=== PATIENT | female | born 1990 | race Caucasian/White ===

== ENCOUNTER 2020-10-27 13:20 | Inpatient (IN) | payer MEDICARE, MEDICAID ==
[~2020-10-27] VITALS: Ht 160 cm; Wt 70.4 kg
[2020-10-27] MEDS ORDERED: FUROSEMIDE 40MG/4ML VIAL IV ONE (13:45)
[2020-10-27 14:04] LABS: BG BASE EXCESS -1.8 mmol/L (-2.0-2.0); BG CARBOXYHEMOGLOBIN 0.8 % (0.5-1.5); BG DEOXYHEMOGLOBIN 31.4 % (0.0-5.0); BG FRACTION INSPIRED OXYGEN 99.9; BG HCO3 ACT 24.2 mmol/L (22.0-26.0); BG METHEMOGLOBIN 0.1 % (0.0-1.5); BG OXYGEN SATURATION 68.3 % (92.0-98.5); BG OXYHEMOGLOBIN 67.7 % (94.0-97.0); BG PCO2 46.4 mmHg (35.0-45.0); BG PH 7.335 (7.350-7.450); BG PO2 41.5 mmHg (75.0-100.0); BG SAMPLE SITE RIGHT RADIAL; BG TOTAL HEMOGLOBIN 10.3 g/dL (12.0-18.0); BG VENT MODE MASK - NRB
[2020-10-27 14:04] LABS: HEMATOCRIT. 30.7 % (36.0-48.0); HEMOGLOBIN. 9.7 g/dL (12.0-16.0); MEAN CORPUSCULAR HEMOGLOBIN 26.6 pg (28.0-32.0); MEAN CORPUSCULAR VOLUME 84.4 fL (81.0-99.0); MEAN PLATELET VOLUME 8.9 fl (7.4-10.4); PLATELET 216 x1000/uL (130-400); RED BLOOD CELL COUNT 3.64 mill/uL (4.2-5.4); RED CELL DISTRIBUTION WIDTH 17.6 % (11.6-14.6)
[2020-10-27 14:10] LABS: CHLORIDE 93 mEq/L (98-107)
[2020-10-27 14:28] LABS: PLATELET ESTIMATE NORMAL
[2020-10-27] MEDS ORDERED: CEFTRIAXONE 1 G PREMIX 50 ML IV ONE (18:30)
[2020-10-27] MEDS ORDERED: AZITHROMYCIN 500 MG in DEXT 5% WATER 250 ML IV SCH (18:30)
[2020-10-27] MEDS ORDERED: NITROGLYCERIN 0.4MG TABLET SL SL PRN (19:15)
[2020-10-27] MEDS ORDERED: ACETAMINOPHEN 325MG TABLET PO PRN ×2 (19:15)
[2020-10-27] MEDS ORDERED: MAGNESIUM/ALUMINUM HYDROXIDE/SIMETHICONE 30ML UDC PO PRN (19:15)
[2020-10-27] MEDS ORDERED: ONDANSETRON HCL 4MG/2ML INJ IV PRN (19:15)
[2020-10-27] MEDS ORDERED: DIPHENHYDRAMINE 50MG/ML VIAL IV PRN (19:15)
[2020-10-27] MEDS ORDERED: DEXTROSE 50% WATER 50ML SYRINGE IV PRN (19:15)
[2020-10-27] MEDS ORDERED: IPRATROPIUM/ALBUTEROL 0.5-3(2.5)MG/3ML NEB NEB PRN (19:15)
[2020-10-27] MEDS ORDERED: DOCUSATE SODIUM 100MG CAPSULE PO PRN (19:15)
[2020-10-27] MEDS ORDERED: GUAIFENESIN 200MG/10ML SUGAR FREE UDC PO PRN (19:15)
[2020-10-27] MEDS ORDERED: ENOXAPARIN 30MG/0.3ML SYR SUBCUT SCH (20:00)
[2020-10-27] MEDS ORDERED: ZOLPIDEM TARTRATE 5MG TABLET PO PRN (20:00)
[2020-10-27] MEDS ORDERED: PIPERACILLIN/TAZOBACTAM 2.25 G in DEXTROSE 5% WATER 50 ML IV SCH (20:00)
[2020-10-27 20:44] LABS: FOLIC ACID (FOLATE) SERUM 7.2 ng/mL (>5.38)
[2020-10-27] MEDS: IPRATROPIUM/ALBUTEROL 0.5-3(2.5)MG/3ML NEB HHN SCH ×2 (20:45→23:34)
[2020-10-27] MEDS: ASCORBIC ACID 500 MG TABLET PO SCH (20:53)
[2020-10-27] MEDS: FAMOTIDINE 20MG TABLET PO SCH (20:53)
[2020-10-27] MEDS: METOPROLOL TARTRATE 25MG TABLET PO SCH ×2 (20:54→21:00)
[2020-10-27] MEDS ORDERED: VANCOMYCIN 1250MG in DEXTROSE 5% WATER 250ML IV SCH (21:00)
[2020-10-27] MEDS: BLOOD SUGAR DIAGNOSTIC STRIP TEST SCH (21:04)
[2020-10-27] MEDS: INSULIN LISPRO 100 UNITS/ML SUBCUT SCH (21:10)
[2020-10-27] MEDS ORDERED: ENOXAPARIN 40MG/0.4ML SYR SUBCUT NR (22:00)
[2020-10-27 23:00] VITALS: BP 114/69
[2020-10-28] VITALS (9 sets, daily range): BP systolic 98–176; BP diastolic 57–108
[2020-10-28] MEDS ORDERED: GABA-529 PO (00:55)
[2020-10-28] MEDS ORDERED: LANTUSUD SUBCUT (00:55)
[2020-10-28] MEDS: IPRATROPIUM/ALBUTEROL 0.5-3(2.5)MG/3ML NEB HHN SCH ×6 (01:09→21:25)
[2020-10-28] MEDS: PIPERACILLIN/TAZOBACTAM 2.25 G in DEXTROSE 5% WATER 50 ML IV SCH ×3 (05:34→22:27)
[2020-10-28] MEDS: BLOOD SUGAR DIAGNOSTIC STRIP TEST SCH ×4 (05:34→21:00)
[2020-10-28] MEDS: INSULIN LISPRO 100 UNITS/ML SUBCUT SCH ×4 (05:44→22:29)
[2020-10-28 05:45] LABS: CHLORIDE 96 mEq/L (98-107)
[2020-10-28 05:46] LABS: INR 1.1
[2020-10-28 05:56] LABS: PHOSPHORUS 6.4 mg/dL (2.5-4.9)
[2020-10-28 05:59] LABS: CREATINE KINASE 54 IU/L (26-192)
[2020-10-28 06:02] LABS: CREATINE KINASE MB FRACTION 1.9 ng/mL (0.5-3.6)
[2020-10-28 06:11] LABS: BASOPHILS % 0.3 % (0.0-2.0); EOSINOPHILS % 0.7 % (0.0-5.0); HEMATOCRIT. 26.2 % (36.0-48.0); HEMOGLOBIN. 8.3 g/dL (12.0-16.0); LYMPHOCYTES % 12.5 % (20.0-50.0); MEAN CORPUSCULAR HEMOGLOBIN 26.8 pg (28.0-32.0); MEAN CORPUSCULAR VOLUME 84.5 fL (81.0-99.0); MEAN PLATELET VOLUME 9.2 fl (7.4-10.4); MONOCYTES % 5.9 % (2.0-8.0); NEUTROPHILS % 80.6 % (40.0-76.0); PLATELET 176 x1000/uL (130-400); RED CELL DISTRIBUTION WIDTH 17.7 % (11.6-14.6)
[2020-10-28] MEDS: METOPROLOL TARTRATE 25MG TABLET PO SCH ×2 (09:00→21:00)
[2020-10-28] MEDS ORDERED: ZINC SULFATE 220 MG ( 50 ) CAPSULE PO SCH (09:00)
[2020-10-28] MEDS: SEVELAMER CARBONATE 800 MG TABLET PO SCH ×3 (09:01→17:28)
[2020-10-28] MEDS: CHOLECALCIFEROL (D3) 1000 UNIT TABLET PO SCH (09:01)
[2020-10-28] MEDS: ASCORBIC ACID 500 MG TABLET PO SCH (09:01)
[2020-10-28] MEDS: ASPIRIN 325MG EC TABLET PO SCH (09:02)
[2020-10-28 17:15] LABS: HCG SCREEN NEGATIVE
[2020-10-28] MEDS: CLONIDINE 0.1MG TABLET PO PRN (19:51)
[2020-10-28] MEDS ORDERED: ENOXAPARIN 80MG/0.8ML SYR SUBCUT SCH (20:00)
[2020-10-28] MEDS: FAMOTIDINE 20MG TABLET PO SCH (22:27)
[2020-10-28] MEDS: EPOETIN ALFA-EPBX 4,000 UNIT/ML VIAL SUBCUT SCH (22:28)
[2020-10-29] VITALS (11 sets, daily range): BP systolic 107–149; BP diastolic 58–77
[2020-10-29] MEDS: IPRATROPIUM/ALBUTEROL 0.5-3(2.5)MG/3ML NEB HHN SCH ×6 (00:57→23:55)
[2020-10-29] MEDS: PIPERACILLIN/TAZOBACTAM 2.25 G in DEXTROSE 5% WATER 50 ML IV SCH ×3 (05:25→21:58)
[2020-10-29] MEDS: BLOOD SUGAR DIAGNOSTIC STRIP TEST SCH ×4 (06:07→21:42)
[2020-10-29] MEDS: SEVELAMER CARBONATE 800 MG TABLET PO SCH ×3 (06:34→17:06)
[2020-10-29] MEDS: ASCORBIC ACID 500 MG TABLET PO SCH (08:09)
[2020-10-29] MEDS: CHOLECALCIFEROL (D3) 1000 UNIT TABLET PO SCH (08:10)
[2020-10-29] MEDS: FOLIC ACID/VITAMIN B COMP W-C TABLET PO SCH (08:10)
[2020-10-29] MEDS: ASPIRIN 325MG EC TABLET PO SCH (08:11)
[2020-10-29] MEDS: METOPROLOL TARTRATE 25MG TABLET PO SCH ×2 (08:11→21:21)
[2020-10-29] MEDS: INSULIN LISPRO 100 UNITS/ML SUBCUT SCH ×4 (08:12→21:56)
[2020-10-29 08:41] LABS: BASOPHILS % 0.3 % (0.0-2.0); HEMATOCRIT. 24.9 % (36.0-48.0); MEAN CORPUSCULAR HEMOGLOBIN 26.7 pg (28.0-32.0); MEAN CORPUSCULAR VOLUME 83.7 fL (81.0-99.0); MONOCYTES % 8.9 % (2.0-8.0); NEUTROPHILS % 78.8 % (40.0-76.0); PHOSPHORUS 6.9 mg/dL (2.5-4.9); PLATELET 143 x1000/uL (130-400); RED BLOOD CELL COUNT 2.98 mill/uL (4.2-5.4); RED CELL DISTRIBUTION WIDTH 17.2 % (11.6-14.6)
[2020-10-29] MEDS ORDERED: IOHEXOL-350 100 ML BOTTLE ONE (09:44)
[2020-10-29 10:02] LABS: BG BASE EXCESS -1.8 mmol/L (-2.0-2.0); BG CARBOXYHEMOGLOBIN 0.2 % (0.5-1.5); BG DEOXYHEMOGLOBIN 17.7 % (0.0-5.0); BG FRACTION INSPIRED OXYGEN 3; BG HCO3 ACT 23.2 mmol/L (22.0-26.0); BG METHEMOGLOBIN 0.1 % (0.0-1.5); BG OXYGEN SATURATION 82.2 % (92.0-98.5); BG PCO2 40.4 mmHg (35.0-45.0); BG PH 7.377 (7.350-7.450); BG SAMPLE SITE LEFT BRACHIAL; BG TOTAL HEMOGLOBIN 8.5 g/dL (12.0-18.0); BG VENT MODE NASAL CANNULA
[2020-10-29 11:16] LABS: INR 1.1; PARTIAL THROMBOPLASTIN TIME 32.2 sec (23.4-31.0); PROTHROMBIN TIME 12.2 sec (9.6-11.0)
[2020-10-29] MEDS: INSULIN GLARGINE UD 100 UNITS/ML SYR SUBCUT SCH (15:10)
[2020-10-29] MEDS ORDERED: VANCOMYCIN 750 MG PREMIX 150 ML IV SCH (16:30)
[2020-10-29] MEDS: FAMOTIDINE 20MG TABLET PO SCH (21:00)
[2020-10-30] VITALS (9 sets, daily range): BP systolic 137–153; BP diastolic 76–89
[2020-10-30] MEDS: IPRATROPIUM/ALBUTEROL 0.5-3(2.5)MG/3ML NEB HHN SCH ×5 (04:00→20:52)
[2020-10-30] MEDS: BLOOD SUGAR DIAGNOSTIC STRIP TEST SCH ×4 (07:08→21:34)
[2020-10-30] MEDS: PIPERACILLIN/TAZOBACTAM 2.25 G in DEXTROSE 5% WATER 50 ML IV SCH ×3 (07:08→22:52)
[2020-10-30] MEDS: SEVELAMER CARBONATE 800 MG TABLET PO SCH ×3 (07:20→16:47)
[2020-10-30] MEDS: INSULIN LISPRO 100 UNITS/ML SUBCUT SCH ×4 (07:27→21:35)
[2020-10-30] MEDS ORDERED: DESMOPRESSIN ACETATE 4MCG/ML AMP IV ONE (08:30)
[2020-10-30 08:36] LABS: CHLORIDE 94 mEq/L (98-107)
[2020-10-30 08:47] LABS: BASOPHILS % 0.4 % (0.0-2.0); EOSINOPHILS % 2.4 % (0.0-5.0); HEMOGLOBIN. 8.5 g/dL (12.0-16.0); LYMPHOCYTES % 8.3 % (20.0-50.0); MEAN CORPUSCULAR HEMOGLOBIN 26.5 pg (28.0-32.0); MEAN CORPUSCULAR VOLUME 84.4 fL (81.0-99.0); MEAN PLATELET VOLUME 8.9 fl (7.4-10.4); NEUTROPHILS % 82.9 % (40.0-76.0); PLATELET 167 x1000/uL (130-400); RED CELL DISTRIBUTION WIDTH 17.2 % (11.6-14.6)
[2020-10-30 08:58] LABS: PHOSPHORUS 8.8 mg/dL (2.5-4.9)
[2020-10-30] MEDS: METOPROLOL TARTRATE 25MG TABLET PO SCH ×2 (09:00→20:04)
[2020-10-30] MEDS: INSULIN GLARGINE UD 100 UNITS/ML SYR SUBCUT SCH (10:21)
[2020-10-30] MEDS: FOLIC ACID/VITAMIN B COMP W-C TABLET PO SCH (10:27)
[2020-10-30] MEDS: ASCORBIC ACID 500 MG TABLET PO SCH (10:28)
[2020-10-30] MEDS: CHOLECALCIFEROL (D3) 1000 UNIT TABLET PO SCH (10:28)
[2020-10-30] MEDS ORDERED: DESMOPRESSIN ACETATE 20 MCG in SODIUM CHLORIDE 0.9% 50 ML IV SCH (11:00)
[2020-10-30] MEDS ORDERED: SODIUM BICARBONATE 4% (2.4MEQ) 5ML VIAL IV ONE (12:28)
[2020-10-30] MEDS: TRAMADOL 50MG TABLET PO PRN (19:42)
[2020-10-30] MEDS: FAMOTIDINE 20MG TABLET PO SCH (20:03)
[2020-10-30] MEDS: AMLODIPINE 2.5MG TABLET PO SCH (20:04)
[2020-10-30] MEDS: CLONIDINE 0.1MG TABLET PO PRN (22:52)
[2020-10-31] VITALS (12 sets, daily range): BP systolic 129–158; BP diastolic 71–96
[2020-10-31] MEDS: PIPERACILLIN/TAZOBACTAM 2.25 G in DEXTROSE 5% WATER 50 ML IV SCH ×3 (05:47→21:20)
[2020-10-31] MEDS: TRAMADOL 50MG TABLET PO PRN (05:48)
[2020-10-31] MEDS: BLOOD SUGAR DIAGNOSTIC STRIP TEST SCH ×4 (06:25→21:20)
[2020-10-31] MEDS: INSULIN LISPRO 100 UNITS/ML SUBCUT SCH ×4 (07:20→21:00)
[2020-10-31 07:32] LABS: BASOPHILS % 0.4 % (0.0-2.0); HEMATOCRIT. 29.4 % (36.0-48.0); HEMOGLOBIN. 8.9 g/dL (12.0-16.0); LYMPHOCYTES % 13.9 % (20.0-50.0); MEAN CORPUSCULAR HEMOGLOBIN 25.4 pg (28.0-32.0); MEAN CORPUSCULAR VOLUME 84.4 fL (81.0-99.0); MEAN PLATELET VOLUME 8.8 fl (7.4-10.4); MONOCYTES % 8.3 % (2.0-8.0); NEUTROPHILS % 74.4 % (40.0-76.0); PLATELET 179 x1000/uL (130-400); RED BLOOD CELL COUNT 3.49 mill/uL (4.2-5.4)
[2020-10-31] MEDS: IPRATROPIUM/ALBUTEROL 0.5-3(2.5)MG/3ML NEB HHN SCH ×5 (08:10→20:38)
[2020-10-31] MEDS: ASCORBIC ACID 500 MG TABLET PO SCH (08:42)
[2020-10-31] MEDS: SEVELAMER CARBONATE 800 MG TABLET PO SCH ×3 (08:42→17:23)
[2020-10-31] MEDS: CHOLECALCIFEROL (D3) 1000 UNIT TABLET PO SCH (08:42)
[2020-10-31] MEDS: FOLIC ACID/VITAMIN B COMP W-C TABLET PO SCH (08:42)
[2020-10-31] MEDS: METOPROLOL TARTRATE 25MG TABLET PO SCH (08:43)
[2020-10-31] MEDS ORDERED: SORBITOL 70% SOLN 30ML PO NR (09:15)
[2020-10-31 09:41] LABS: BG BASE EXCESS -2.9 mmol/L (-2.0-2.0); BG CARBOXYHEMOGLOBIN 0.5 % (0.5-1.5); BG FRACTION INSPIRED OXYGEN 21; BG HCO3 ACT 22.6 mmol/L (22.0-26.0); BG METHEMOGLOBIN 0.2 % (0.0-1.5); BG OXYGEN SATURATION 87.9 % (92.0-98.5); BG OXYHEMOGLOBIN 87.3 % (94.0-97.0); BG PCO2 41.9 mmHg (35.0-45.0); BG PH 7.349 (7.350-7.450); BG PO2 58.5 mmHg (75.0-100.0); BG SAMPLE SITE RIGHT RADIAL; BG TOTAL HEMOGLOBIN 9.8 g/dL (12.0-18.0); BG VENT MODE ROOM AIR
[2020-10-31] MEDS: INSULIN GLARGINE UD 100 UNITS/ML SYR SUBCUT SCH (10:09)
[2020-10-31] MEDS: FAMOTIDINE 20MG TABLET PO SCH (21:19)
[2020-10-31] MEDS: LABETALOL HCL 200MG TABLET PO SCH (21:20)
[2020-10-31] MEDS: AMLODIPINE 2.5MG TABLET PO SCH (21:20)
[2020-10-31] MEDS: EPOETIN ALFA-EPBX 4,000 UNIT/ML VIAL SUBCUT SCH (21:20)
[2020-11-01] VITALS (12 sets, daily range): BP systolic 122–163; BP diastolic 63–97
[2020-11-01] MEDS: PIPERACILLIN/TAZOBACTAM 2.25 G in DEXTROSE 5% WATER 50 ML IV SCH (05:56)
[2020-11-01] MEDS: BLOOD SUGAR DIAGNOSTIC STRIP TEST SCH ×4 (05:56→20:59)
[2020-11-01 07:08] LABS: BASOPHILS % 0.5 % (0.0-2.0); EOSINOPHILS % 3.5 % (0.0-5.0); HEMATOCRIT. 28.4 % (36.0-48.0); HEMOGLOBIN. 8.9 g/dL (12.0-16.0); LYMPHOCYTES % 15.9 % (20.0-50.0); MEAN CORPUSCULAR HEMOGLOBIN 26.2 pg (28.0-32.0); MEAN CORPUSCULAR VOLUME 83.5 fL (81.0-99.0); MEAN PLATELET VOLUME 8.4 fl (7.4-10.4); MONOCYTES % 9.3 % (2.0-8.0); NEUTROPHILS % 70.8 % (40.0-76.0); PLATELET 193 x1000/uL (130-400); RED CELL DISTRIBUTION WIDTH 16.9 % (11.6-14.6)
[2020-11-01] MEDS: SEVELAMER CARBONATE 800 MG TABLET PO SCH ×3 (07:20→18:10)
[2020-11-01] MEDS: INSULIN LISPRO 100 UNITS/ML SUBCUT SCH ×4 (07:20→20:59)
[2020-11-01] MEDS: IPRATROPIUM/ALBUTEROL 0.5-3(2.5)MG/3ML NEB HHN SCH ×4 (08:55→21:41)
[2020-11-01 09:47] LABS: PHOSPHORUS 7.4 mg/dL (2.5-4.9)
[2020-11-01] MEDS: ASCORBIC ACID 500 MG TABLET PO SCH (09:48)
[2020-11-01] MEDS: CHOLECALCIFEROL (D3) 1000 UNIT TABLET PO SCH (09:48)
[2020-11-01] MEDS: LABETALOL HCL 200MG TABLET PO SCH ×2 (09:49→20:58)
[2020-11-01] MEDS: FOLIC ACID/VITAMIN B COMP W-C TABLET PO SCH (09:49)
[2020-11-01] MEDS: INSULIN GLARGINE UD 100 UNITS/ML SYR SUBCUT SCH (11:03)
[2020-11-01] MEDS ORDERED: VANCOMYCIN 500 MG PREMIX 100 ML IV SCH (13:00)
[2020-11-01] MEDS: FAMOTIDINE 20MG TABLET PO SCH (20:58)
[2020-11-01] MEDS: AMLODIPINE 2.5MG TABLET PO SCH (20:58)
[2020-11-02] VITALS (10 sets, daily range): BP systolic 129–170; BP diastolic 75–92
[2020-11-02] MEDS: IPRATROPIUM/ALBUTEROL 0.5-3(2.5)MG/3ML NEB HHN SCH ×5 (00:37→17:08)
[2020-11-02] MEDS: BLOOD SUGAR DIAGNOSTIC STRIP TEST SCH ×3 (06:30→16:47)
[2020-11-02] MEDS: CLONIDINE 0.1MG TABLET PO PRN (06:50)
[2020-11-02] MEDS: INSULIN LISPRO 100 UNITS/ML SUBCUT SCH ×3 (07:20→17:07)
[2020-11-02] MEDS: SEVELAMER CARBONATE 800 MG TABLET PO SCH ×3 (07:20→17:05)
[2020-11-02] MEDS: FOLIC ACID/VITAMIN B COMP W-C TABLET PO SCH (10:08)
[2020-11-02] MEDS: ASCORBIC ACID 500 MG TABLET PO SCH (10:08)
[2020-11-02] MEDS: CHOLECALCIFEROL (D3) 1000 UNIT TABLET PO SCH (10:08)
[2020-11-02] MEDS: INSULIN GLARGINE UD 100 UNITS/ML SYR SUBCUT SCH (10:20)
[2020-11-02] MEDS ORDERED: ENOXAPARIN 30MG/0.3ML SYR SUBCUT SCH (14:00)
[2020-11-02] MEDS ORDERED: AMLODIPINE 5MG TABLET PO SCH (21:00)
[2020-11-02] MEDS ORDERED: LABETALOL HCL 200MG TABLET PO SCH (21:00)
== END 2020-11-02 21:00 | disposition home or self-care (01) | DRG 871 ==
LOC: ER 13:34 → EDBEDREQ 13:46 → 7WST 18:27 → EDBEDREQ 18:33 → EDBEDREQTM 18:33 → ENRESERV 21:36 → SUPCPDRO 21:36 → 3WST 10-28 08:19
PROVIDERS: ADMIT Internal Medicine; ATTEND Internal Medicine
PROC: 5A09357 Assistance with Respiratory Ventilation, Less than 24 Consecutive Hours, Continuous Positive Airway Pressure (ICD-10-PCS; 2020-10-27)
PROC: 0W9B3ZZ Drainage of Left Pleural Cavity, Percutaneous Approach (ICD-10-PCS; principal; 2020-10-30)
DX: A41.9 Sepsis, unspecified organism (principal); I50.33 Acute on chronic diastolic (congestive) heart failure; J96.01 Acute respiratory failure with hypoxia; N18.6 End stage renal disease; J18.9 Pneumonia, unspecified organism; I21.4 Non-ST elevation (NSTEMI) myocardial infarction; E87.1 Hypo-osmolality and hyponatremia; I13.2 Hypertensive heart and chronic kidney disease with heart failure and with stage 5 chronic kidney disease, or end stage renal disease; N25.81 Secondary hyperparathyroidism of renal origin; E44.1 Mild protein-calorie malnutrition; D63.8 Anemia in other chronic diseases classified elsewhere; E11.22 Type 2 diabetes mellitus with diabetic chronic kidney disease; E11.319 Type 2 diabetes mellitus with unspecified diabetic retinopathy without macular edema; E11.40 Type 2 diabetes mellitus with diabetic neuropathy, unspecified; E11.51 Type 2 diabetes mellitus with diabetic peripheral angiopathy without gangrene; E11.65 Type 2 diabetes mellitus with hyperglycemia; E83.39 Other disorders of phosphorus metabolism; I27.29 Other secondary pulmonary hypertension; R59.0 Localized enlarged lymph nodes; M54.5 Low back pain; Z20.822 Contact with and (suspected) exposure to COVID-19; Z90.49 Acquired absence of other specified parts of digestive tract; Z99.2 Dependence on renal dialysis; Z79.4 Long term (current) use of insulin; Z82.49 Family history of ischemic heart disease and other diseases of the circulatory system; Z87.01 Personal history of pneumonia (recurrent); Z68.27 Body mass index [BMI] 27.0-27.9, adult; Z98.891 History of uterine scar from previous surgery
CPT/HCPCS: 32555; 36415; 36600; 71045; 71275; 80048; 80053; 80061; 80202; 82375; 82550; 82553; 82607; 82746; 82805; 82962; 83036; 83540; 83550; 83605; 83615; 83735; 83880; 83986; 84100; 84145; 84484; 84703; 85025; 85379; 93005; 93306; 93970; 94618; 94640; 94660; 97110; 97116; 97162; 99291; J0456; J0696; J0885; J1200; J1650; J1815; J1940; J2543; J2597; J3370; J3490; J7060; Q9967; U0003